=== PATIENT | female | born 1960 | race Caucasian/White ===

== ENCOUNTER 2022-03-03 19:43 | Observation (INO) | payer BC ==
[2022-03-03] MEDS ORDERED: Sodium Chloride 0.9% 1,000 ML IV STA (19:58)
[2022-03-03] MEDS ORDERED: Ondansetron 4 MG/2 ML SDV IVPUSH ONE (19:58)
[2022-03-03] MEDS ORDERED: Sodium Chloride 0.9% 10 ML Syringe FLUSH PRN (19:58)
[2022-03-03] MEDS ORDERED: HYDROmorphone 0.5 MG/0.5 ML Syringe IVPUSH ONE (19:59)
[2022-03-03] MEDS: HYDROmorphone 1 MG/ML Syringe IVPUSH ONE ×2 (21:31→21:38)
[2022-03-03] MEDS ORDERED: Piperacillin/Tazobactam 4.5 GM in Sodium Chloride 0.9% 100 ML IV ONE (22:24)
[2022-03-04] MEDS ORDERED: Ondansetron 4 MG/2 ML SDV IVPUSH PRN ×2 (00:08→07:46)
[2022-03-04] MEDS ORDERED: Sodium Chloride 0.9% 1,000 ML IV SCH (00:15)
[2022-03-04] MEDS: HYDROmorphone 0.5 MG/0.5 ML Syringe IVPUSH PRN ×2 (00:22→05:03)
[2022-03-04] MEDS ORDERED: Piperacillin/Tazobactam 4.5 GM in Sodium Chloride 0.9% 100 ML IV SCH ×2 (04:00→13:00)
[2022-03-04] MEDS ORDERED: Piperacillin/Tazobactam 3.375 GM in Sodium Chloride 0.9% 100 ML IV SCH (04:00)
[2022-03-04] MEDS ORDERED: Bupivacaine 0.5%/EPINEPHrine 1:200,000 50 ML MDV ONE (06:16)
[2022-03-04] MEDS ORDERED: Ondansetron 4 MG/2 ML SDV ONE (06:26)
[2022-03-04] MEDS ORDERED: Rocuronium 50 MG/5 ML Vial ONE (06:26)
[2022-03-04] MEDS ORDERED: Propofol 200 MG/20 ML SDV ONE (06:26)
[2022-03-04] MEDS ORDERED: Lidocaine 1% 4 ML ONE (06:26)
[2022-03-04] MEDS ORDERED: fentaNYL 250 MCG/5 ML SDV ONE (06:27)
[2022-03-04] MEDS ORDERED: Dexamethasone 4 MG/ML 5 ML MDV ONE (06:27)
[2022-03-04] MEDS ORDERED: Lactated Ringers 1,000 ML ONE (06:27)
[2022-03-04] MEDS ORDERED: Midazolam 1 MG/ML 2 ML SDV ONE (06:27)
[2022-03-04] MEDS ORDERED: Neostigmine Methylsulfate 10 MG/10 ML MDV ONE (07:09)
[2022-03-04] MEDS ORDERED: Ketorolac 30 MG/ML SDV ONE (07:24)
[2022-03-04] MEDS ORDERED: fentaNYL 100 MCG/2 ML SDV IVPUSH PRN (07:46)
[2022-03-04] MEDS ORDERED: HYDROmorphone 0.5 MG/0.5 ML Syringe IVPUSH PRN (07:46)
== END 2022-03-04 14:53 | disposition home or self-care (01) ==
LOC: JD.ED 19:43 → JD.MS 22:57
PROVIDERS: ADMIT Surgery; ATTEND Surgery
DX: K35.30 Acute appendicitis with localized peritonitis, without perforation or gangrene (principal); Z79.899 Other long term (current) drug therapy
CPT/HCPCS: 36415; 44970; 74177; 80053; 81001; 83690; 85025; 96361; 96365; 96366; 96375; 96376; 99285; G0378; J1100; J1170; J1885; J2250; J2405; J2543; J2704; J2710; J3010; J3490; J7030; J7120; 00840; 99140; 99283

== ENCOUNTER 2023-07-20 18:42 | Emergency (ER) | payer BC ==
[2023-07-20] MEDS ORDERED: Lactated Ringers 500 ML IV ONE (19:21)
[2023-07-20] MEDS ORDERED: Ondansetron 4 MG/2 ML SDV IVPUSH ONE (19:21)
[2023-07-20] MEDS ORDERED: Lactated Ringers 1,000 ML IV SCH (19:30)
[2023-07-20 20:08] LABS: BASOPHILS PERCENT AUTO 0.1 % (0.0-1.0); HEMATOCRIT 35.7 % (37.0-47.0); HEMOGLOBIN 12.4 gm/dl (12.0-16.0); IMMATURE GRAN ABSOLUTE AUTO 0.02 K/mm3 (0.00-0.05); IMMATURE GRAN PERCENT AUTO 0.2 % (0.0-0.4); LYMPHOCYTES ABSOLUTE AUTO 0.1 K/mm3 (1.0-4.8); LYMPHOCYTES PERCENT AUTO 0.9 % (24.0-44.0); MEAN CORPUSCULAR HEMOGLOBIN 34.4 pg (28.0-32.0); MEAN CORPUSCULAR HGB CONC 34.7 g/dl (32.0-36.0); MEAN CORPUSCULAR VOLUME 99.2 fl (83.0-99.0); MEAN PLATELET VOLUME 10.8 fl (9.4-12.3); MONOCYTES ABSOLUTE AUTO 0.4 K/mm3 (0.0-0.8); MONOCYTES PERCENT AUTO 4.1 % (0.0-8.0); NEUTROPHILS ABSOLUTE AUTO 8.4 K/mm3 (1.8-7.7); NEUTROPHILS PERCENT AUTO 94.7 % (41.0-71.0); PLATELET COUNT,PLT 171 K/mm3 (150-400); WHITE BLOOD CELL COUNT,WBC 8.92 K/mm3 (3.9-11.3)
[2023-07-20 20:29] LABS: A/G RATIO 1.1 (1-2); ALBUMIN 3.5 g/dl (3.4-5.0); ANION GAP 17.4 (5-15); BUN/CREATININE RATIO 22.2 (14-18); CALCIUM 8.9 mg/dL (8.5-10.1); CREATININE 0.9 mg/dL (0.55-1.02); EST CRCL DRUG DOSING (CG) 59.07 mL/min; POTASSIUM,K 3.4 mEq/L (3.5-5.1); PROTEIN TOTAL,TP 6.8 g/dl (6.4-8.2)
[2023-07-20] MEDS ORDERED: Lactated Ringers 1,000 ML IV ONE (21:14)
[2023-07-20] MEDS ORDERED: HYDROmorphone 0.5 MG/0.5 ML Syringe IVPUSH ONE (21:16)
[2023-07-20] MEDS ORDERED: Potassium Chloride 20 MEQ Tab.ER PO ONE (21:17)
[2023-07-20 21:19] LABS: APPEARANCE,URINE CLEAR (Clear); BILIRUBIN,URINE NEGATIVE (Negative); COLOR,URINE YELLOW (Yellow); GLUCOSE,URINE NEGATIVE (Negative); KETONES,URINE TRACE (Negative); LEUKOCYTE ESTERASE,URINE NEGATIVE (Negative); NITRITE,URINE NEGATIVE (Negative); OCCULT BLOOD,URINE TRACE-INTACT (Negative); PH,URINE 7.5 (5.0-8.0); PROTEIN,URINE NEGATIVE (Negative); UROBILINOGEN,URINE 0.2 (0.2-1.0)
[2023-07-20 21:39] LABS: BACTERIA,URINE FEW /hpf (FEW); MUCUS,URINE NOT SEEN /hpf (FEW); RBC,URINE 0-5 /hpf (0-5); WBC,URINE 0-5 /hpf (0-5)
== END 2023-07-21 00:19 | disposition home or self-care (01) ==
LOC: JD.ED 18:42
DX: R10.12 Left upper quadrant pain (principal); E86.0 Dehydration; Z86.16 Personal history of COVID-19
CPT/HCPCS: 36415; 74019; 80053; 81001; 83690; 85025; 96361; 96374; 96375; 99284; A9270; J1170; J2405; J7120